=== PATIENT | female | born 1950 | race Caucasian/White ===

== ENCOUNTER 2017-06-03 10:00 | Emergency (ER) | payer MEDICARE, OTHER ==
[~2017-06-03] VITALS: Ht 162.6 cm; Wt 74.8 kg
[~2017-06-03 10:00] MED LIST: ASPI-495 PO; CLON0.5T PO; FENO134C PO; LOSA1TAB36 PO; METO50TA16 PO; PRAV40TA3 PO; ZOLP10TA2 PO
[2017-06-03] MEDS ORDERED: CT SWABBABLE VALVE TRANS SET 1 EA INFUS.SET MC ONE ×2 (10:53→12:51)
[2017-06-03] MEDS ORDERED: IV NS 0.9% 250 ML IV ONE ×2 (10:53→12:51)
[2017-06-03] MEDS ORDERED: IOHEXOL-350 100 ML VIAL IV ONE ×2 (10:53→12:50)
--- NOTE | 2017-06-03 10:56 | NUR ---
CALL BACK FROM DR VIDAL,TELE STROKE, SPOKE WITH DR ALY
--- NOTE | 2017-06-03 11:00 | NUR ---
ASSUME PT CARE. PER REPORT, PT STARTED HAVING SLURRED AND SLOWED SPEECH LAXT NIGHT AT 2300. FAMILY STATES PT IS STILL AMBULATORY. DENIES WEAKNESS. NO HX OF STROKE. PT WAS TAKEN TO RADIOLOGY FOR HEAD CT SCAN. SEEN AND EVALUATED BY RIGOBERTO. WILL CONTINUE TO MONITOR.
--- NOTE | 2017-06-03 11:25 | NUR ---
IV LINE STARTED BLOOD DRAWN AND SENT TO LAB.
[2017-06-03 11:31] LABS: BASOPHILS # (AUTO) 0.2 /CMM (0.0-0.2); BASOPHILS % (AUTO) 2.1 % (0.0-2.0); EOSINOPHILS # (AUTO) 0.1 /CMM (0.0-0.7); HEMATOCRIT 36 % (33-45); HEMOGLOBIN 12.1 g/dL (11.5-14.8); LYMPHOCYTES # (AUTO) 0.9 /CMM (0.8-4.8); LYMPHOCYTES % (AUTO) 12.1 % (20.0-44.0); MEAN CORPUSCULAR HEMOGLOBIN 29 PG (26.0-33.0); MEAN CORPUSCULAR HGB CONC 34 g/dl (31.0-36.0); MEAN CORPUSCULAR VOLUME 87 fL (82-100); MONOCYTES # (AUTO) 0.4 /CMM (0.1-1.30); MONOCYTES % (AUTO) 5.3 % (2.0-12.0); NEUTROPHILS # (AUTO) 6.2 /CMM (1.8-8.9); NEUTROPHILS % (AUTO) 79.5 % (43.0-81.0); PLATELET COUNT (AUTO) 156 /CMM (150-450); RDW COEFFICIENT OF VARIATION 14.4 (11.5-15.0); RED BLOOD CELL COUNT(AUTO) 4.15 MIL/uL (4.0-5.2); WHITE BLOOD COUNT (AUTO) 7.8 K/uL (4.3-11.0)
[2017-06-03 11:39] LABS: CALCIUM, SERUM 9.4 mg/dL (8.5-10.1); CARBON DIOXIDE 25 mmol/L (21-32); CHLORIDE 103 mmol/L (98-107); CREATININE 1.4 mg/dL (0.6-1.3); GLUCOSE 142 mg/dL (74-106); SODIUM SERUM 136 mmol/L (136-145); UREA NITROGEN, BLOOD 36 mg/dL (7-18)
[2017-06-03] MEDS ORDERED: FURO40TA5 PO (11:43)
[2017-06-03] MEDS ORDERED: POTA8TAB8 PO (11:43)
[2017-06-03] MEDS ORDERED: CYAN500T4 PO (11:43)
[2017-06-03] MEDS ORDERED: FERR325T23 PO (11:43)
[2017-06-03] MEDS ORDERED: RAMI2.5C PO (11:43)
[2017-06-03] MEDS ORDERED: METO25TA3 PO (11:43)
[2017-06-03] MEDS ORDERED: APIX5TAB PO (11:43)
[2017-06-03] MEDS ORDERED: ROSU20TA PO (11:43)
[2017-06-03] MEDS ORDERED: ERGO500040 PO (11:43)
[2017-06-03] MEDS ORDERED: LEVO100T9 PO (11:43)
[2017-06-03] MEDS ORDERED: AMLO5TAB2 PO (11:43)
[2017-06-03 11:44] LABS: INR 0.95 (0.87-1.13)
[2017-06-03 11:49] LABS: TROPONIN I < 0.017 ng/mL (0.00-0.056)
[2017-06-03 12:16] LABS: CHOLESTEROL 160 mg/dL (<200); HDL CHOLESTEROL 47 mg/dL (40-60); LDL 102 mg/dL (0-99); TRIGLYCERIDES 143 mg/dL (30-150)
[2017-06-03] MEDS ORDERED: IV NS 0.9% 500 ML BAG IV ONE (12:30)
[2017-06-03] MEDS ORDERED: DEXTROSE 50%-WATER 50 ML DISP.SYRIN IV ONE (12:30)
[2017-06-03] MEDS ORDERED: INSULIN REGULAR, HUMAN 100 UNIT/ML 10 ML VIAL IV ONE (12:30)
[2017-06-03] MEDS ORDERED: SODIUM POLYSTYRENE SULFONATE 15 G/60 ML BOTTLE PO ONE (12:30)
[2017-06-03] MEDS ORDERED: FUROSEMIDE 40 MG/4 ML VIAL IV ONE (12:30)
[2017-06-03] MEDS ORDERED: FUROSEMIDE 20 MG/2 ML VIAL ONE (12:34)
[2017-06-03] MEDS ORDERED: SODIUM POLYSTYRENE SULFONATE 15 G/60 ML BOTTLE ONE (12:34)
[2017-06-03] MEDS ORDERED: INSULIN REGULAR, HUMAN 100 UNIT/ML 10 ML VIAL ONE (12:35)
[2017-06-03] MEDS ORDERED: DEXTROSE 50%-WATER 50 ML DISP.SYRIN ONE (12:35)
--- NOTE | 2017-06-03 12:55 | NUR ---
PATIENT TRANSPORTED FOR CTA
--- NOTE | 2017-06-03 13:51 | NUR ---
TELE STROKE CALLED [phone], TRANSFER PT TO [facility] PER DR ALY
--- NOTE | 2017-06-03 14:26 | NUR ---
ACCEPTED BY DR LOPEZ FOR AN INTERFACILITY TX BY 911 TO ER,911 CALLED
[2017-06-03 14:30] VITALS: BP 154/78
--- NOTE | 2017-06-03 15:12 | NUR ---
REPORT GIVEN TO ALY AT [facility]. PT TRANSFERED TO [facility] ACLS [facility]OC[facility].
--- NOTE | 2017-06-03 15:20 | NUR ---
PT TRANSFERED TO [facility]. STABLE CONDITION.
== END 2017-06-03 16:00 | disposition short-term general hospital (02) ==
LOC: ER 10:08
DX: I63.9 Cerebral infarction, unspecified (principal); E87.5 Hyperkalemia; N17.9 Acute kidney failure, unspecified; I10 Essential (primary) hypertension; F41.9 Anxiety disorder, unspecified; Z95.1 Presence of aortocoronary bypass graft; Z85.3 Personal history of malignant neoplasm of breast; Z98.890 Other specified postprocedural states; Z79.01 Long term (current) use of anticoagulants
CPT/HCPCS: 36415; 70450; 70496; 70498; 71045; 80048; 80061; 82962; 84484; 85025; 85730; 93005; 96374; 96375; 99291; A4606; J1815; J1940; J7040; J7050 ×2; Q9967 ×2; Z7610